=== PATIENT | male | born 1990 | race Two or more races ===

== ENCOUNTER 2019-05-07 14:32 | Emergency (ER) | payer MEDICAID, OTHER ==
[~2019-05-07] VITALS: Ht 188 cm; Wt 131.5 kg
--- NOTE | 2019-05-07 14:38 | NUR ---
ED Nurse Note: pt not found in waiting area.
[2019-05-07 14:59] VITALS: BP 167/84
--- NOTE | 2019-05-07 15:01 | NUR ---
ED Nurse Note: pt walked in due to numbness of the left thumb started 2 weeks ago, pt stated it all started when he is swimming a month ago and the he dive and he stroke and his shoulder start to hurt since then and now his thumb is hurting. no new trauma. will continue to monitor.
--- NOTE | 2019-05-07 15:50 | NUR ---
ED Nurse Note: xray on bedside
--- NOTE | 2019-05-07 15:52 | Emergency Room Report ---
History of Present Illness General Chief Complaint: Upper Extremity Injury Source: Patient Present Illness HPI 28 YO male presents to the ED c/o 07/19 in severity pain, tenderness and stiffness in the left shoulder x 1 month in addition to intermittent electrical / shooting sensations down the left arm and left thumb with left thumb paresthesias x 2 weeks. Denies Trauma or fall. pt. reports acute onset after diving into a pool and feeling a pain in the left shoulder. Denies hx of HTN. pt. denies significant PMHx. Denies CP, SOB, dizziness, LOC/syncope, or JOHNSON. Denies weakness in the affected extremity. Denies swelling, bruising or open wounds. Allergies: Coded Allergies: No Known Allergies (Unverified , 05/07/19) Patient History Past Medical History: see triage record Past Surgical History: none Pertinent Family History: none Reviewed Nursing Documentation: PMH: Agreed; PSxH: Agreed Nursing Documentation-PMH Past Medical History: No Stated History Review of Systems All Other Systems: negative except mentioned in HPI Physical Exam Vital Signs Date Time Temp Pulse Resp B/P (MAP) Pulse Ox O2 Delivery O2 Flow Rate FiO2 05/07/19 14:48 98.2 84 18 167/84 (111) 96 Room Air Sp02 EP Interpretation: reviewed, normal General Appearance: no apparent distress, alert, GCS 15, non-toxic Head: normocephalic, atraumatic Eyes: bilateral eye normal inspection, bilateral eye PERRL ENT: hearing grossly normal, normal voice Neck: full range of motion Respiratory: chest non-tender, lungs clear, normal breath sounds, speaking full sentences Cardiovascular #1: regular rate, rhythm, normal capillary refill Cardiovascular #2: 2+ radial (R), 2+ radial (L) Musculoskeletal: back normal, gait/station normal, normal range of motion, tender - TTP to the left shoulder at the A/C joint area, no step-off, no clicking. No muscular weakness. no Swelling, bruising or erythema. FROM with pain. NVI , some Left SCM and left trapezius TTP, no midline neck or back ttp. Neurologic: alert, oriented x3, responsive, motor strength/tone normal, sensory intact, speech normal, grossly normal Psychiatric: judgement/insight normal Lymphatic: no adenopathy Medical Decision Making PA Attestation Dr. Cespedes is my supervising Physician whom patient management has been discussed with. Diagnostic Impression: Primary Impression: Left upper arm pain Additional Impression: Paresthesia of left arm ER Course 28 YO male presents to the ED c/o /10 in severity pain, tenderness and stiffness in the left shoulder x 1 month in addition to intermittent electrical / shooting sensations down the left arm and left thumb with left thumb paresthesias x 2 weeks. Denies Trauma or fall. pt. reports acute onset after diving into a pool and feeling a pain in the left shoulder. Denies hx of HTN. pt. denies significant PMHx. Denies CP, SOB, dizziness, LOC/syncope, or JOHNSON. Denies weakness in the affected extremity. Denies swelling, bruising or open wounds. Pt. reprots multiple episodes of visible muscle twitching/spasms in the left arm. Pt. is right hand dominant. Ddx considered but are not limited to Fracture, dislocation, contusion, Sprain/ Strain/Spasm, nerve impingement, radiculopathy. Vital signs: are WNL, pt. is afebrile H&PE are most consistent with musculoskeletal injury will perform imaging to r/ o fractures/dislocations. ORDERS: - X-ray Left Shoulder - negative for fx, Dislocation, or significant soft tissue injury, per preliminary read in ED, and signed by JUAN Zavaleta, my supervising physician has reviewed, and agrees with my interpretation. ED INTERVENTIONS: - lidoderm TP -Left arm sling is applied by ED parts technician patient remains neurovascularly intact both before and after application of sling. DISCHARGE: At this time pt. is stable for d/c to home. Will provide printed patient care instructions, and any necessary prescriptions. Care plan and follow up instructions have been discussed with the patient prior to discharge. Other X-Ray Diagnostic Results Other X-Ray Diagnostic Results : X-Ray ordered: LEFT SHOULDER # of Views/Limited Vs Complete: 3 View Indication: Pain EP Interpretation: Yes JUAN Xray: Interpretation reviewed, by supervising MD, and agrees with findings. Interpretation: no dislocation, no soft tissue swelling, no fractures Impression: No acute disease Electronically Signed by: Dolores Zavaleta PA-C Last Vital Signs Date Time Temp Pulse Resp B/P (MAP) Pulse Ox O2 Delivery O2 Flow Rate FiO2 05/07/19 14:59 98.2 78 18 167/84 96 Room Air Disposition: HOME, SELF-CARE Condition: Stable Scripts Lidocaine (Lidoderm) 1 Each Adh..patch 1 PATCH TOPIC DAILY, #30 PATCH 0 Refills Patch(es) may remain in place for up to 12 hours in any 24-hour period. Prov: Dolores Zavaleta 05/07/19 Methocarbamol* (ROBAXIN-750*) 750 Mg Tablet 750 MG PO QID, #28 TAB 0 Refills Prov: Dolores Zavaleta 05/07/19 Naproxen* (NAPROXEN*) 500 Mg Tablet.dr 500 MG ORAL TWICE A DAY for 10 Days, #20 TAB Prov: Dolores Zavaleta 05/07/19 Referrals: Cathy Cavazos. [facility] Patient Instructions: Paresthesia, [id number], Pinched Nerve Additional Instructions: Take medications as directed. Do not drink alcohol, drive, or operate heavy machinery while taking ROBAXIN/ MUSCLE RELAXER as this may cause drowsiness. Follow up with an COMPUTED TOMOGRAPHY TECHNICIAN in 3-5 days, even if your symptoms have resolved. If symptoms persist MRI may be required at the discretion of your PCP or Ortho Specialist. --Please review list of primary care clinics, if you do not already have a primary care provider who can give you an Orthopedic Referral. Return sooner to ED if new symptoms occur, or current symptoms become worse. - Please note that this Emergency Department Report was dictated using [employer] integration planner technology software, occasionally this can lead to erroneous entry secondary to interpretation by the dictation equipment. Dolores Zavaleta May 07, 2019 15:52
[2019-05-07] MEDS ORDERED: ROBAXIN-750750 MG PO (16:20)
[2019-05-07] MEDS ORDERED: NAPROXEN500 M1 ORAL (16:20)
[2019-05-07] MEDS ORDERED: LIDODERM700 M1 TOPIC (16:20)
[2019-05-07 16:30] VITALS: BP 145/80
--- NOTE | 2019-05-07 16:30 | NUR ---
ER DISCHARGE NOTE: Patient is cleared to be discharged per ERMD, pt is aox4, on room air, with stable vital signs. pt was given dc and prescription instructions, pt was able to verbalize understanding, pt id band and iv site removed without complications. pt is able to ambulate with steady gait. pt took all belongings.
--- NOTE | 2019-05-07 17:28 | Diagnostic Imaging Report ---
Indication: Left shoulder pain Technique: 3 views of the left shoulder Comparison: none Findings: No acute fractures. No dislocations. Joint spaces are preserved. Impression: Negative
== END 2019-05-07 16:30 | disposition home or self-care (01) ==
LOC: EMR 15:42
DX: M25.512 Pain in left shoulder (principal); R20.2 Paresthesia of skin
CPT/HCPCS: 99283

== ENCOUNTER 2020-01-31 18:01 | Emergency (ER) | payer SELFPAY ==
[~2020-01-31] VITALS: Ht 190.5 cm; Wt 127.0 kg
[~2020-01-31 18:01] MED LIST: LIDODERM700 M1 TOPIC; NAPROXEN500 M1 ORAL; ROBAXIN-750750 MG PO
[2020-01-31 18:07] VITALS: BP 142/70
--- NOTE | 2020-01-31 18:09 | NUR ---
ED Nurse Note: A/OX4. CAME TO ED DUE TO FEVER, RUNNY NOSE, AND HEADACHE X SINCE LAST NIGHT. DENIES SOB. BREATHING NORMAL/EVEN/UNLABORED. SKIN WARM/DRY/INTACT. NAD NOTED.
--- NOTE | 2020-01-31 18:55 | Emergency Room Report ---
History of Present Illness General Chief Complaint: Flu Like Symptoms Source: Patient Present Illness HPI 29-year-old male presents to the emergency department with 7 out of 10 severity runny nose, generalized headache in addition to nasal congestion since yesterday. Patient denies sneezing he reports he felt really hot but did not have a measured temperature. Patient states that he checked twice at home. He denies recent travel. Patient denies cough, abdominal pain, chest pain, shortness of breath or body aches. Patient denies any significant past medical history. He states he did not take any medications while at home. He denies dizziness, sudden onset of his headache, neck pain/stiffness. Allergies: Coded Allergies: No Known Allergies (Unverified , 01/31/20) COVID-19 Screening Contact w/high risk pt: No Recent Travel to affected area: No Experienced COVID-19 symptoms?: Yes COVID-19 symptoms experienced: Fever (T>100.4F or >38C), Runny Nose Patient History Past Medical History: see triage record Past Surgical History: none Pertinent Family History: none Reviewed Nursing Documentation: PMH: Agreed; PSxH: Agreed Nursing Documentation-PMH Past Medical History: No Stated History Review of Systems All Other Systems: negative except mentioned in HPI Physical Exam Vital Signs Date Time Temp Pulse Resp B/P (MAP) Pulse Ox O2 Delivery O2 Flow Rate FiO2 01/31/20 18:03 99.0 80 18 142/70 (94) 96 Room Air Sp02 EP Interpretation: reviewed, normal General Appearance: no apparent distress, alert, GCS 15, non-toxic Head: normocephalic, atraumatic Eyes: bilateral eye normal inspection, bilateral eye PERRL, bilateral eye other - no photophobia ENT: hearing grossly normal, normal voice Neck: full range of motion, no meningismus Respiratory: chest non-tender, lungs clear, normal breath sounds, no respiratory distress, no accessory muscle use, no wheezing, speaking full sentences Cardiovascular #1: regular rate, rhythm Musculoskeletal: normal range of motion, gait/station normal, non-tender Neurologic: alert, motor strength/tone normal, oriented x3, sensory intact, responsive, speech normal, normal gait, no pronator, grossly normal, no focal defects Psychiatric: judgement/insight normal Skin: no rash, normal color Lymphatic: no adenopathy Medical Decision Making PA Attestation Dr. Little is my supervising Physician whom patient management has been discussed with. Diagnostic Impression: Primary Impression: Head ache Qualified Codes: R51 - Headache Additional Impression: Urinary symptom or sign ER Course 29-year-old male presents to the emergency department with 7 out of 10 severity runny nose, generalized headache in addition to nasal congestion since yesterday. Patient denies sneezing he reports he felt really hot but did not have a measured temperature. Patient states that he checked twice at home. He denies recent travel. Patient denies cough, abdominal pain, chest pain, shortness of breath or body aches. Patient denies any significant past medical history. He states he did not take any medications while at home. He denies dizziness, sudden onset of his headache, neck pain/stiffness. Ddx considered but are not limited to allergies, sinusitis, migraine, SAH, Pseudomotor Cerebri, Mass lesion, Cluster JOHNSON, Tension JOHNSON, URI, FLu, COVID-19 just to name a few. Vital signs: are WNL, pt. is afebrile H&PE are most consistent with URI symptoms and JOHNSON without focal neurological deficits. ORDERS: - none required at this time, dx is clinical. ED INTERVENTIONS: - none required at this time. This patient was evaluated in the context of the global COVID-19 pandemic, which necessitated consideration that the patient might be at risk for infection with the SARS-COV-2 virus that causes COVID-19. Institutional protocols and algorithms that pertaining to the evaluation of patients at risk for COVID-19 are in a state of rapid change based on information released by multiple regulatory bodies including the CDC and federal and state organizations. These policies and algorithms were followed during the patient' s care in the emergency department DISCHARGE: At this time pt. is stable for d/c to home. Will provide printed patient care instructions, and any necessary prescriptions. Care plan and follow up instructions have been discussed with the patient prior to discharge. Last Vital Signs Date Time Temp Pulse Resp B/P (MAP) Pulse Ox O2 Delivery O2 Flow Rate FiO2 01/31/20 18:07 80 18 Room Air 01/31/20 18:07 99.0 142/70 96 Disposition: HOME, SELF-CARE Condition: Stable Scripts Pseudoephedrine Hcl* (NEXAFED*) 30 Mg Tablet 30 MG ORAL Q6H PRN for congestion, #12 TAB Prov: Dolores Zavaleta 01/31/20 Acetaminophen* (TYLENOL EXTRA STRENGTH*) 500 Mg Tablet 500 MG ORAL Q6H, #30 TAB 0 Refills Prov: Dolores Zavaleta 01/31/20 Referrals: Cathy [facility] Patient Instructions: General Headache Without Cause, [id number], Medical Screening Exam Additional Instructions: ~ ~ An emergent medical condition has not been identified based on this patients presentation, exam and any necessary testing/imaging. The patient is determined to be stable for outpatient follow-up and management of symptoms by a primary care provider. Take medications as directed. Follow up with a Primary Care Provider in 3-5 days, even if your symptoms have resolved. --Please review list of primary care clinics, if you do not already have a primary care provider Return sooner to ED if new symptoms occur, or current symptoms become worse. - Please note that this Emergency Department Report was dictated using [email or web address] and export clerk technology software, occasionally this can lead to erroneous entry secondary to interpretation by the dictation equipment. Dolores Zavaleta Jan 31, 2020 18:55
[2020-01-31] MEDS ORDERED: TYLENOL EXTRA500 MG ORAL (18:56)
[2020-01-31] MEDS ORDERED: NEXAFED30 MG ORAL (18:56)
[2020-01-31 19:11] VITALS: BP 142/70
--- NOTE | 2020-01-31 19:15 | NUR ---
ED Nurse Note: Pt cleared by health care Provider for discharge. DC instructions/prescription was given and explained to pt and verbalized understanding of teachings. All medical deviecs such as ID band removed. Pt is AAO x4, ambulatory and left with all personal belongings.
== END 2020-01-31 19:16 | disposition home or self-care (01) ==
LOC: EMR 18:15
DX: R51 Headache (principal); R09.89 Other specified symptoms and signs involving the circulatory and respiratory systems; R50.9 Fever, unspecified
CPT/HCPCS: 99281